=== PATIENT | female | born 1965 | race Caucasian/White ===

== ENCOUNTER → 2017-07-28 10:59 | Outpatient (CLI) | payer OTHER, SELFPAY ==
[2017-07-28 18:45] LABS: Basophils % 0.4 % (0.1-2.0); Eosinophils # 0.3 K/mm3 (0.0-0.4); Hemoglobin 12.8 g/dL (12.2-16.2); Lymphocytes # 3.3 K/mm3 (0.7-4.5); Lymphocytes % 34.7 K/mm3 (10-50); Mean Corpuscular HGB Conc 31.2 g/dL (31.8-35.4); Mean Corpuscular Hemoglobin 26.5 pg (27.0-31.2); Mean Corpuscular Volume 84.8 fl (81-99); Mean Platelet Volume 8.4 fl (7.4-10.4); Monocytes # 0.6 K/mm3 (0.1-1.0); Monocytes % 6.5 % (1.7-9.3); Neutrophils # 5.3 K/mm3 (1.8-7.8); Neutrophils % 55.3 % (37.0-80.0); Platelet Count 427 K/mm3 (142-424); Red Blood Count 4.84 M/mm3 (4.20-5.40); Red Cell Distribution Width 15.5 % (11.5-17.5); White Blood Count 9.5 K/mm3 (4.8-10.8)
[2017-07-28 19:13] LABS: Alanine Aminotransferase 22 U/L (12-78); Albumin Level 3.9 gm/dL (3.4-5.0); Albumin/Globulin Ratio 0.9 (1.1-1.8); Alkaline Phosphatase 69 U/L (46-116); Anion Gap 14.5 mEq/L (5-15); Aspartate Amino Transferase 14 U/L (15-37); Bilirubin,Total 0.3 mg/dL (0.2-1.0); Blood Urea Nitrogen 8 mg/dL (7-18); Calcium 9.3 mg/dL (8.5-10.1); Carbon Dioxide 26 mmol/L (21.0-32.0); Chloride 104 mmol/L (98-107); Chol/HDL Ratio 5.4 (1-3.5); Cholesterol 223 mg/dL (140-200); Creatinine,Serum 0.61 mg/dL (0.55-1.02); Estimated Glomerular Filt Rate 104 ml/min (>60); Free T4 (Free Thyroxine) 1.08 ng/dl (0.76-1.46); GFR (African American) 126 ML/MIN (>60); Globulin 4.2 gm/dl (1.3-3.2); Glucose 85 mg/dL (74-106); HDL Cholesterol 41 mg/dL (29-89); LDL Cholesterol 159 mg/dL (0-130); Potassium 4.5 mmoL/L (3.5-5.1); Sodium 140 mmol/L (136-145); Thyroid Stimulating Hormone 1.38 uIU/ml (0.358-3.740); Total Protein,Serum 8.1 gm/dL (6.4-8.2); Triglycerides 117 mg/dL (30-200); VLDL Cholesterol 23 mg/dL (0-40)
[2017-07-28 19:19] LABS: Hemoglobin A1C 5.6 % (0.0-7.0)
[2017-07-28 20:05] LABS: Erythrocyte Sedimentation Rate 42 mm/hr (0-20)
[2017-07-30 17:09] LABS: RA Latex Turbid. 474.1 IU/mL (0.0-13.9)
[2017-07-31 13:09] LABS: Anti-Jo-1 <0.2 AI (0.0-0.9); Anti-Smith Antibody <0.2 AI (0.0-0.9); Antichromatin Antibodies <0.2 AI (0.0-0.9); Antiscleroderma-70 Antibodies <0.2 AI (0.0-0.9); RNP Antibodies 0.4 AI (0.0-0.9); Sjogren's Anti-SS-A <0.2 AI (0.0-0.9); Sjogren's Anti-SS-B <0.2 AI (0.0-0.9)
[2017-08-02 06:34] LABS: Anti-Centromere B Antibodies <0.2 AI (0.0-0.9); Anti-Cyclic Citrullinated Pept >250 units (0-19); Anti-DNA (DS) Ab Qn 2 IU/mL (0-9); Vitamin D 25 Hydroxy 29.3 ng/mL (30.0-100.0)
== END ==
PROVIDERS: Visit Provider Nurse Practitioner Family
DX: R53.83 Other fatigue (principal)
CPT/HCPCS: 80053; 80061; 82652; 83036; 84439; 84443; 85025; 85651; 86038; 86141; 86200; 86431

== ENCOUNTER → 2017-08-15 09:15 | Outpatient (CLI) | payer OTHER, SELFPAY ==
--- NOTE | 2017-08-15 09:20 | XR_ITS ---
XR chest 2V HISTORY: ITS.REASON: lung nodule ORDERING PHYSICIAN: Amanda Judge PATIENT AGE: 52 years COMPARISON: None available FINDINGS: Unremarkable cardiovascular structures. There are small well-defined nodular opacities in the perihilar region and in the lower lobes consistent with granulomas. These are 4 mm or less. No acute bony anomalies. IMPRESSION: No acute finding. Old granulomatous disease
--- NOTE | 2017-08-15 09:20 | MM_ITS ---
MM Dig screening mamm BI w/CAD CAD Screening ORDERING PHYSICIAN : Amanda Judge PATIENT AGE: 52 years INDICATION: Routine screeningNo new complaints. Prior Excisional benign biopsy left breast. Noncontributory family history COMPARISON: Previous mammograms have been purged TECHNIQUE: Standard CC and MLO images were obtained. R2 CAD reviewed. FINDINGS: Moderate, Fairly dense breast bilaterally on the right of more pronounced than left. This decreases sensitivity of mammography. On prior films been purged. RIGHT BREAST: 8 mm focal nodular density lateral left breast LABELED A.. Suggest cc & MLO spot view right breast, along with a full 90 degree view right breast and subsequent right breast ultrasound. Others other areas of slight nodularity seen to to dissipate from one view to another. Ultrasound be helpful and survey persist or other features LEFT BREAST:Moderately dense left breast. Areas of minimal focal density at the lateral left breast on cc view most likely summation shadow would seem to dissipate. However would suggest CC and MLO spot view areas labeled X&Y with subsequent ultrasound left breast as well when patient returns. IMPRESSION: Moderately dense breasts which somewhat decrease sensitivity of mammography. Ultrasound is useful to compliment mammography in breast in this setting RIGHT BREAST: Spot views & ultrasound recommended to further evaluate focal 8 mm nodular density lateral breast Labeled A. Minimal nodularity elsewhere seems to dissipate on but warrants subsequent survey with ultrasound. LEFT BREAST.:Spot views & ultrasound suggested to further evaluate areas of density, particularly Area labeled X and less evident Area labeled Y.... These more likely merely summation shadows but would benefit from further evaluation as well Previous & outside studies have been purged not available for comparison BI-RADS Category: 0 Need Additional Imaging Evaluaiton RECOMMENDED FOLLOW-UP: IMM - IMMEDIATE FOLLOW-UP RECOMMENDED (A letter has been sent to the patient regarding results of the study.)
[2017-08-15 11:07] VITALS: PULSE 80; PULSE 83
== END ==
PROVIDERS: PCP Emergency Medicine; Visit Provider Nurse Practitioner Family
DX: Z12.31 Encounter for screening mammogram for malignant neoplasm of breast (principal); N87.9 Dysplasia of cervix uteri, unspecified; R91.1 Solitary pulmonary nodule
CPT/HCPCS: 71046; 77067; 94060; 94640

== ENCOUNTER → 2017-08-29 13:41 | Outpatient (CLI) | payer OTHER, SELFPAY ==
--- NOTE | 2017-08-29 13:42 | MM_ITS ---
MM Dig mamm BI DX w/CAD Right breast ultrasound with axilla. Left breast ultrasound with axilla COMPARISON: 08/15/2017 mammogram INDICATION: Follow-up abnormal mammogram ORDERING PHYSICIAN: Amanda Judge PATIENT AGE: 52 years TECHNIQUE: Problem solving views of both breasts along with bilateral breast ultrasound FINDINGS: Right mammogram: Dense fibroglandular tissue decreasing the sensitivity of mammography. A 6 mm nodular opacity at the 9:00 region. There is some asymmetry in the superior aspect of the right breast and could be related to an 8 mm nodule that was seen on the ultrasound of the same day. Right mammogram: 2 mm cyst at 9:00, 5 mm hypoechoic lesion at 10:00 and could represent a complex cyst. Cannot exclude the possibility of a solid nodule. There is a 7 x 8 mm solid-appearing nodule at 11:00. As well-circumscribed and could represent a small fibroadenoma. Left mammogram: Asymmetric densities in the upper outer aspect of the left breast appear to compress out as fibroglandular tissue. Left breast ultrasound: 5 mm cyst at 2:00. Small nodes in the axilla. IMPRESSION: Asymmetric density in the superior aspect of the right breast may correspond to a solid nodule by ultrasound. Probable cyst at the 9:00 region. The findings are mildly suspicious. Benign findings on the left BI-RADS Category: 4 Suspicious Abnormality-Biopsy Considered right breast RECOMMENDED FOLLOW-UP: BIO - BIOPSY RECOMMENDED Recommend ultrasound-guided fine-needle aspiration/core biopsy of the right breast of the 2 complex nodules (A letter has been sent to the patient regarding results of the study.)
== END ==
PROVIDERS: PCP Emergency Medicine; Visit Provider Nurse Practitioner Family
DX: R92.8 Other abnormal and inconclusive findings on diagnostic imaging of breast (principal)
CPT/HCPCS: 77066

== ENCOUNTER → 2017-08-30 08:16 | Outpatient (CLI) | payer OTHER, SELFPAY ==
--- NOTE | 2017-08-30 08:40 | US_ITS ---
MM Dig mamm BI DX w/CAD Right breast ultrasound with axilla. Left breast ultrasound with axilla COMPARISON: 08/15/2017 mammogram None INDICATION: Follow-up abnormal mammogram ORDERING PHYSICIAN: Amanda Judge PATIENT AGE: 52 years TECHNIQUE: Problem solving views of both breasts along with bilateral breast ultrasound FINDINGS: Right mammogram: Dense fibroglandular tissue decreasing the sensitivity of mammography. A 6 mm nodular opacity at the 9:00 region. There is some asymmetry in the superior aspect of the right breast and could be related to an 8 mm nodule that was seen on the ultrasound of the same day. Right mammogram: 2 mm cyst at 9:00, 5 mm hypoechoic lesion at 10:00 and could represent a complex cyst. Cannot exclude the possibility of a solid nodule. There is a 7 x 8 mm solid-appearing nodule at 11:00. As well-circumscribed and could represent a small fibroadenoma. Left mammogram: Asymmetric densities in the upper outer aspect of the left breast appear to compress out as fibroglandular tissue. Left breast ultrasound: 5 mm cyst at 2:00. Small nodes in the axilla. IMPRESSION: Asymmetric density in the superior aspect of the right breast may correspond to a solid nodule by ultrasound. Probable cyst at the 9:00 region. The findings are mildly suspicious. Benign findings on the left BI-RADS Category: 4 Suspicious Abnormality-Biopsy Considered right breast RECOMMENDED FOLLOW-UP: BIO - BIOPSY RECOMMENDED Recommend ultrasound-guided fine-needle aspiration/core biopsy of the right breast of the 2 complex nodules (A letter has been sent to the patient regarding results of the study.)
== END ==
PROVIDERS: PCP Emergency Medicine; Visit Provider Nurse Practitioner Family
DX: R92.8 Other abnormal and inconclusive findings on diagnostic imaging of breast (principal)
CPT/HCPCS: 76641

== ENCOUNTER → 2017-09-07 09:12 | Outpatient (CLI) | payer OTHER, SELFPAY ==
--- NOTE | 2017-09-07 09:14 | US_ITS ---
FNA w guidance, FNA w guidance, US organ site (breast) HISTORY: 2 right breast nodules seen on recent mammogram and ultrasound. ITS.REASON: abnormal right mammogram ORDERING PHYSICIAN: Reji Almaguer MD PATIENT AGE: 52 years COMPARISON: 08/30/2017 and 08/29/2017 TECHNIQUE: Following obtaining informed consent, using aseptic technique and local anesthesia with buffered lidocaine, fine-needle aspiration was performed of the nodule of interest at 10:00 and then at 11:00 using sonographic guidance with a 21-gauge needle. Both nodules decreased in size. Specimen was given to cytology. The patient tolerated the procedure well without evidence of immediate complications and left the ultrasound suite in stable condition. CYTOLOGY: Nodule A at 10:00 negative for malignant cells. Consistent with cyst contents Nodule B at 11:00: Negative for malignant cells consistent with cyst contents IMPRESSION: Status post fine needle aspiration of nodules at 10 and 11:00 under sonographic guidance showing benign findings. Recommend repeat right mammogram and breast ultrasound in 6 months.
== END ==
PROVIDERS: PCP Emergency Medicine; Visit Provider Emergency Medicine
DX: R92.8 Other abnormal and inconclusive findings on diagnostic imaging of breast (principal)
CPT/HCPCS: 76942; 10022; 76641

== ENCOUNTER → 2017-10-13 10:21 | Outpatient (CLI) | payer OTHER, SELFPAY ==
--- NOTE | 2017-10-13 10:41 | XR_ITS ---
XR wrist RT min 3V HISTORY pain ITS.REASON: carpal tunnel ORDERING PHYSICIAN: Brock Gamez MD PATIENT AGE: 52 years COMPARISON: None FINDINGS: No fracture or dislocation. No lytic or blastic change. There is normal mineralization.. The joint spaces are well-preserved. No significant degenerative/arthritic changes. No erosive changes evident.. IMPRESSION: Negative wrist
--- NOTE | 2017-10-13 10:41 | XR_ITS ---
XR wrist LT min 3V HISTORY pain ITS.REASON: carpal tunnel ORDERING PHYSICIAN: Brock Gamez MD PATIENT AGE: 52 years COMPARISON: None FINDINGS: No fracture or dislocation. No lytic or blastic change. There is normal mineralization.. The joint spaces are well-preserved. No significant degenerative/arthritic changes. No erosive changes evident.. IMPRESSION: Negative wrist
--- NOTE | 2017-10-13 10:41 | XR_ITS ---
XR chest 2V HISTORY: ITS.REASON: CURRENT SMOKER ORDERING PHYSICIAN: Brock Gamez MD PATIENT AGE: 52 years COMPARISON: 08/15/2017 FINDINGS: The cardiomediastinal silhouette and pulmonary vascularity are within normal limits. The lungs are clear without infiltrates, suspicious nodules, or pleural effusions. Old granulomatous disease. Old right third rib fracture anteriorly No acute bony abnormalities. IMPRESSION: No change with no acute finding
[2017-10-13 12:14] LABS: Basophils % 0.3 % (0.1-2.0); Eosinophils # 0.1 K/mm3 (0.0-0.4); Eosinophils % 1.4 % (0.1-12.0); Hematocrit 39.2 % (37.0-47.0); Hemoglobin 12.6 g/dL (12.2-16.2); Lymphocytes % 28.3 K/mm3 (10-50); Mean Corpuscular HGB Conc 32.2 g/dL (31.8-35.4); Mean Corpuscular Hemoglobin 27.5 pg (27.0-31.2); Mean Corpuscular Volume 85.4 fl (81-99); Mean Platelet Volume 7.3 fl (7.4-10.4); Monocytes # 0.5 K/mm3 (0.1-1.0); Monocytes % 4.7 % (1.7-9.3); Neutrophils # 6.9 K/mm3 (1.8-7.8); Neutrophils % 65.4 % (37.0-80.0); Platelet Count 409 K/mm3 (142-424); Red Blood Count 4.59 M/mm3 (4.20-5.40); Red Cell Distribution Width 15.2 % (11.5-17.5); White Blood Count 10.5 K/mm3 (4.8-10.8)
[2017-10-13 13:04] LABS: Anion Gap 14.2 mEq/L (5-15); Blood Urea Nitrogen 8 mg/dL (7-18); Carbon Dioxide 27 mmol/L (21.0-32.0); Chloride 105 mmol/L (98-107); Creatinine,Serum 0.49 mg/dL (0.55-1.02); Estimated Glomerular Filt Rate 134 ml/min (>60); GFR (African American) 162 ML/MIN (>60); Potassium 4.2 mmoL/L (3.5-5.1); Sodium 142 mmol/L (136-145)
[2017-10-13 13:13] LABS: Glucose 92 mg/dL (74-106)
== END ==
PROVIDERS: Visit Provider Orthopaedic Surgery
DX: Z01.818 Encounter for other preprocedural examination (principal); G56.01 Carpal tunnel syndrome, right upper limb
CPT/HCPCS: 36415; 71046; 73110; 80048; 85025; 93005

== ENCOUNTER → 2017-11-08 09:32 | Outpatient (CLI) | payer OTHER, SELFPAY ==
--- NOTE | 2017-11-08 09:35 | XR_ITS ---
XR knee LT 4V HISTORY: ITS.REASON: left knee pain ORDERING PHYSICIAN: Brock aGmez MD PATIENT AGE: 52 years COMPARISON: None FINDINGS: No fracture or dislocation. No lytic or blastic change. Normal mineralization. No significant arthritic changes evident. No other significant findings IMPRESSION: Negative Knee
== END ==
PROVIDERS: PCP Nurse Practitioner Family; Visit Provider Orthopaedic Surgery
DX: M25.562 Pain in left knee (principal)
CPT/HCPCS: 73564

== ENCOUNTER → 2017-12-07 10:53 | Outpatient (CLI) | payer OTHER, SELFPAY ==
--- NOTE | 2017-12-07 10:53 | MR_ITS ---
MR knee LT wo con HISTORY: Left knee pain anterior, posterior, and all around the knee ITS.REASON: left knee pain ORDERING PHYSICIAN: Brock Gamez MD PATIENT AGE: 52 years Comparison: 11/08/2017 TECHNIQUE: Standard multiplanar multiecho sequences are performed without contrast. FINDINGS: The cruciate ligaments are intact. The collateral ligaments are intact. The quadriceps tendon and patellar tendon have an unremarkable appearance. No evidence of meniscal tear. There is decreased T1 and increased T2 signal involving the lateral aspect of the distal femur consistent with a bone bruise or bone marrow edema.. This is just deep to the fibula collateral ligament. There is a large knee joint effusion with a large component in the suprapatellar region and even larger Campbell's cyst a loculated appearance and measuring 10 cm cephalad to caudad containing internal septations and internal debris with heterogeneous signal intensity. The Campbell's cyst extends inferiorly into the upper calf. IMPRESSION: 1. No internal derangement. 2. Bone bruise or bone marrow edema along the lateral aspect of the distal femur deep to the insertion of the fibulocollateral ligament. The lateral collateral ligament however appears intact. 3. Large knee joint effusion with large Campbell's cyst with internal debris and septations of the cyst
[2017-12-07 12:59] LABS: Free T4 (Free Thyroxine) 1.03 ng/dl (0.76-1.46); Thyroid Stimulating Hormone 1.38 uIU/ml (0.358-3.740)
[2017-12-08 15:39] LABS: Folate 4.8 ng/mL (>3.0); Vitamin B12 370 pg/mL (232-1245)
== END ==
PROVIDERS: PCP Nurse Practitioner Family; Visit Provider Orthopaedic Surgery
DX: M25.562 Pain in left knee (principal)
CPT/HCPCS: 36415; 73721; 82607; 82746; 84439; 84443

== ENCOUNTER → 2017-12-18 12:30 | Outpatient (CLI) | payer OTHER, SELFPAY ==
--- NOTE | 2017-12-18 12:32 | NVE_ITS ---
Venous Exam Indications: 729.5 Pain in limb. IMPRESSIONS 1. There is no evidence of significant Reflux. 2. No evidence of deep or superficial vein thrombosis involving the left lower extremity 3. Large Bakers cyst with internal debris Complete lower extremity venous duplex evaluation. Doppler flow study including spectral analysis, color and cadet scale imaging. Location: Vascular laboratory. Patient status: Outpatient. CRITICAL FINDINGS - Reported to: Dorina - Read back and verified. - 12/18/17 - 1330 - Large campbell's cyst with internal debris Incidental findings: A Campbell's cyst is noted incidentally on the left. Tables: Venous flow and imaging: + +-------+ + Location Overall Flow properties + +-------+ + Left common femoral Patent Normal phasicity; spontaneous; normal augmentation; compressible + +-------+ + Left saphenofemoral junction Patent Compressible + +-------+ + Left profunda femoral Patent Compressible + +-------+ + Left femoral Patent Normal phasicity; spontaneous; normal augmentation; compressible + +-------+ + Left greater saphenous Patent Normal phasicity; spontaneous; normal augmentation; compressible + +-------+ + Left popliteal Patent Normal phasicity; spontaneous; normal augmentation; compressible + +-------+ + Left posterior tibial Patent Compressible + +-------+ + Left peroneal Patent Compressible + +-------+ + Left gastrocnemius Patent Compressible + +-------+ + Left soleal Patent Compressible + +-------+ + (Report amended ) Electronically signed by: Magnus Vera [id number]
[2017-12-18 14:32] LABS: Basophils % 0.4 % (0.1-2.0); Eosinophils # 0.3 K/mm3 (0.0-0.4); Eosinophils % 2.9 % (0.1-12.0); Hematocrit 42.6 % (37.0-47.0); Hemoglobin 13.1 g/dL (12.2-16.2); Lymphocytes # 3.3 K/mm3 (0.7-4.5); Mean Corpuscular HGB Conc 30.7 g/dL (31.8-35.4); Mean Corpuscular Hemoglobin 26.2 pg (27.0-31.2); Mean Corpuscular Volume 85.1 fl (81-99); Mean Platelet Volume 6.8 fl (7.4-10.4); Monocytes # 0.6 K/mm3 (0.1-1.0); Monocytes % 5.8 % (1.7-9.3); Neutrophils # 6.1 K/mm3 (1.8-7.8); Neutrophils % 58.9 % (37.0-80.0); Platelet Count 532 K/mm3 (142-424); Red Blood Count 5.01 M/mm3 (4.20-5.40); Red Cell Distribution Width 13.9 % (11.5-17.5); White Blood Count 10.4 K/mm3 (4.8-10.8)
[2017-12-18 16:45] LABS: Anion Gap 13.2 mEq/L (5-15); Blood Urea Nitrogen 7 mg/dL (7-18); Calcium 9.7 mg/dL (8.5-10.1); Carbon Dioxide 26 mmol/L (21.0-32.0); Chloride 105 mmol/L (98-107); Creatinine,Serum 0.61 mg/dL (0.55-1.02); Estimated Glomerular Filt Rate 104 ml/min (>60); GFR (African American) 126 ML/MIN (>60); Glucose 102 mg/dL (74-106); Potassium 5.2 mmoL/L (3.5-5.1); Sodium 139 mmol/L (136-145)
== END ==
PROVIDERS: Orthopaedic Surgery; PCP Emergency Medicine; Visit Provider Emergency Medicine
DX: G56.02 Carpal tunnel syndrome, left upper limb (principal); Z01.818 Encounter for other preprocedural examination
CPT/HCPCS: 36415; 80048; 85025; 93971

== ENCOUNTER → 2018-02-15 10:26 | Outpatient (CLI) | payer OTHER, SELFPAY ==
--- NOTE | 2018-02-15 10:28 | XR_ITS ---
XR knee RT 4V HISTORY: Right knee pain ITS.REASON: weightbearing ORDERING PHYSICIAN: Brock Gamez MD PATIENT AGE: 52 years COMPARISON: None FINDINGS: No fracture or dislocation. No lytic or blastic change. Normal mineralization. No significant arthritic changes evident. No other significant findings IMPRESSION: Negative Knee
== END ==
PROVIDERS: PCP Emergency Medicine; Visit Provider Orthopaedic Surgery
DX: M25.561 Pain in right knee (principal)
CPT/HCPCS: 73564

== ENCOUNTER → 2018-09-04 11:54 | Outpatient (CLI) | payer OTHER, SELFPAY ==
--- NOTE | 2018-09-04 12:03 | XR_ITS ---
XR chest 2V HISTORY: Smoker, history of lung nodule ITS.REASON: shortness of breath ORDERING PHYSICIAN: Reji Almaguer MD PATIENT AGE: 53 years COMPARISON: 09/18/2019 FINDINGS: The cardiomediastinal silhouette and pulmonary vascularity are within normal limits. There is chronic coarsening of the bronchovascular markings which may related to smoking-related lung disease. Calcified granuloma is present in the right lung base laterally and there is an old right third rib fracture. No lobar consolidation or collapse. No acute bony findings and no significant change from 10/13/2017. IMPRESSION: Chronic changes, no acute finding
--- NOTE | 2018-09-04 12:03 | XR_ITS ---
EXAM: XR cervical spine 5V HISTORY: Neck pain, history of rheumatoid arthritis ITS.REASON: neck pain ORDERING PHYSICIAN: Reji Almaguer MD PATIENT AGE: 53 years COMPARISON: None FINDINGS: There is degenerative disc disease at C6-C7 with minimal anterolisthesis of C5 on C6 of 2 mm. Foraminal narrowing is present on the right at C3-C4 from uncovertebral hypertrophy. No fracture or dislocation. No lytic or blastic change. Mild facet arthritic changes are noted at C3-C4 and C5. There is normal C1-C2 relationship. There is reversal of lordosis at C5-C6. IMPRESSION: 1. Degenerative disc disease C5-C6 reversal lordosis and foraminal narrowing on the right at C3-C4. 2. Facet arthritic change
[2018-09-04 12:28] LABS: Basophils % 0.2 % (0.1-2.0); Eosinophils # 0.2 K/mm3 (0.0-0.4); Hematocrit 36.4 % (37.0-47.0); Hemoglobin 11.9 g/dL (12.2-16.2); Lymphocytes # 4.7 K/mm3 (0.7-4.5); Lymphocytes % 26.7 % (10-50); Mean Corpuscular HGB Conc 32.8 g/dL (31.8-35.4); Mean Corpuscular Volume 82.4 fl (81-99); Mean Platelet Volume 6.7 fl (7.4-10.4); Monocytes % 5.6 % (1.7-9.3); Neutrophils # 11.6 K/mm3 (1.8-7.8); Neutrophils % 66.5 % (37.0-80.0); Platelet Count 483 K/mm3 (142-424); Red Blood Count 4.42 M/mm3 (4.20-5.40); Red Cell Distribution Width 14.4 % (11.5-17.5); White Blood Count 17.5 K/mm3 (4.8-10.8)
[2018-09-04 12:32] LABS: MANUAL DIFFERENTIAL MANUAL DIFFERENTIAL (MANUAL DIFF)
[2018-09-04 12:50] LABS: Eosinophils % 1 % (0-3); Lymphocytes % 27 % (10-50); Monocytes % 3 % (2-9); Neutrophils % 69 % (42-76); Platelet Estimate Slight Increase; RBC Morphology Normal; Total Cells Counted 100
[2018-09-04 13:27] LABS: Erythrocyte Sedimentation Rate 69 mm/hr (0-30)
[2018-09-04 13:48] LABS: Alanine Aminotransferase 16 U/L (12-78); Albumin Level 3.7 gm/dL (3.4-5.0); Albumin/Globulin Ratio 0.9 (1.1-1.8); Alkaline Phosphatase 62 U/L (46-116); Anion Gap 16.5 mEq/L (5-15); Aspartate Amino Transferase 13 U/L (15-37); Bilirubin,Total 0.2 mg/dL (0.2-1.0); Blood Urea Nitrogen 6 mg/dL (7-18); Calcium 9.3 mg/dL (8.5-10.1); Carbon Dioxide 24 mmol/L (21.0-32.0); Chloride 104 mmol/L (98-107); Chol/HDL Ratio 4.6 (1-3.5); Cholesterol 197 mg/dL (140-200); Creatinine,Serum 0.55 mg/dL (0.55-1.02); Estimated Glomerular Filt Rate 117 ml/min (>60); Free T4 (Free Thyroxine) 1.12 ng/dl (0.76-1.46); GFR (African American) 141 ML/MIN (>60); Globulin 4.1 gm/dl (1.3-3.2); Glucose 96 mg/dL (74-106); HDL Cholesterol 43 mg/dL (29-89); LDL Cholesterol 137 mg/dL (0-130); Potassium 3.5 mmoL/L (3.5-5.1); Sodium 141 mmol/L (136-145); Thyroid Stimulating Hormone 1.82 uIU/ml (0.358-3.740); Total Protein,Serum 7.8 gm/dL (6.4-8.2); Triglycerides 86 mg/dL (30-200); Uric Acid 3.2 mg/dL (2.6-7.2); VLDL Cholesterol 17 mg/dL (0-40)
[2018-09-05 08:45] LABS: RA Latex Turbid. 498.1 IU/mL (0.0-13.9)
[2018-09-05 15:44] LABS: Antinuclear Antibodies, IFA Positive (.)
== END ==
PROVIDERS: Visit Provider Emergency Medicine
DX: M06.9 Rheumatoid arthritis, unspecified (principal); R06.02 Shortness of breath; M54.2 Cervicalgia
CPT/HCPCS: 36415; 71046; 72050; 80053; 80061; 84439; 84443; 84550; 85007; 85025; 85651; 86038; 86431

== ENCOUNTER 2020-06-12 11:09 | Emergency (ER) | payer OTHER, SELFPAY ==
[2020-06-12 11:15] VITALS: BP 145/79; PULSE 84; RESP 18; TEMP 36.6; O2SAT 100; BMI 26.5
--- NOTE | 2020-06-12 11:32 | HMH.EDSKAF ---
ED Disposition Clinical Impression: Felon of digit Disposition: Home, Self-Care Condition on Discharge: Good Instructions: DI for Skin Abscess Additional Instructions: Continue taking antibiotics. Keep your thumb clean and dry. Follow-up PCP in 3 days. Referrals: PCP,No [Primary Care Provider] - 3 days Time of Disposition: 12:26 - Critical Care Critical Care Time: No Attestation: On 06/12/20, the high probability of a clinically significant, sudden or life threatening deterioration of the following system(s) required my full and direct attention, intervention and personal management. The time I documented below is in addition to time spent performing reported procedures but includes the following listed in this critical care notation. Medical Decision Making - Jad Inquiry Pt receiving controlled substance: No Vital Signs: 06/12/20 11:15 Temperature 97.9 F Temperature Source Oral Pulse Rate [Right Radial] 84 Respiratory Rate 18 Blood Pressure [Right Arm] 145/79 H Blood Pressure Mean [Right Arm] 101 Blood Pressure Source [Right Arm] Automatic Cuff Blood Pressure Position [Right Arm] Sitting 02 Sat by Pulse Oximetry 100 Oxygen Delivery Method Room Air Skin/Abscess/FB HPI - General Chief complaint: Skin/Abscess/Foreign Body Stated complaint: left thumb has hematoma Time Seen by Provider: 06/12/20 11:32 Mode of Arrival: Ambulatory Source of Information: Patient Limitations: No Limitations Description of Symptoms (Recalled from ER Triage Doc. by RN): Pt reports has had a arthritic nodule for a long time on L thumb, pt reports approx 6 days ago area began getting larger, area is green in color, pt states area is painful, denies fever or drainage. Pt reports has been on bactrim for 3 days per PCP, states she was referred to dermatology who pt states told her they wouldn't touch it because its nodular . Pt states she was called by pcp office and told to come to the ER for evaluation. - History of Present Illness HPI narrative: 55yo F with past medical history significant for rheumatoid arthritis presents to the emergency department secondary to pain and swelling about her left thumb. Pain and swelling are located about the distal phalanx, the pulp. Patient voices been ongoing for a week. She saw PCP and was started on Bactrim approximately 3 days ago. She was referred to dermatology who said they did not handle this. Patient was then called by her PCP and instructed to come to the emergency department immediately for further evaluation. Patient denies previous episodes similar to this. Denies fever, nausea/vomiting/diarrhea. Denies known sick contact. - Related Data Home Medications Medication Instructions Recorded Confirmed Sulfamethoxazole/Trimethoprim 1 tab PO BID 06/12/20 06/12/20 [Sulfamethoxazole-Tmp Ds Tablet*] Tofacitinib Citrate [Xeljanz Xr] 11 mg PO DAILY 06/12/20 06/12/20 Allergies Allergy/AdvReac Type Severity Reaction Status Date / Time No Known Allergies Allergy Verified 09/04/18 10:25 [facility] History - Hepatitis A Screen Drug use history?: No High risk sexual behaviors?: No History of sexually transmitted infection?: No Currently employed?: No Childcare worker?: No Do you have indoor plumbing?: Yes Do you have electricity?: Yes Attestation statement:: This patient has been screened for Hepatitis A risk factors. Medical History: Reports:: Anxiety, Chronic Obstructive Pulmonary Disease (COPD), Depression, Gastroesophageal Reflux Disease(GERD), Hyperlipidemia, Hypertension Denies:: Cancer, Diabetes Mellitus Type 1, Diabetes Mellitus Type 2, Internal Pacemaker, MRSA, Seizures Other Medical History: Reports: Arthritis, Fibromyalgia. Denies: Blood Transfusion Reaction Comment: IRON DEFICIENCY, DYSPHLASIA Laterality Cases: Left: Lumpectomy, Bilateral: Carpal Tunnel Release, Other Other Surgeries: Yes: Tubal Ligation, Other. No: Pacemaker Amputation: No Fractu
--- NOTE | 2020-06-12 12:37 | PC.NURSE ---
DRESSING APPLIED TO LT THUMB
[2020-06-12 12:38] VITALS: BP 132/74; PULSE 78; RESP 16; TEMP 36.6; O2SAT 98
== END 2020-06-12 12:39 | disposition home or self-care (01) ==
PROVIDERS: Emergency Provider Family Medicine; PCP Nurse Practitioner Family
DX: L03.012 Cellulitis of left finger (principal); F41.8 Other specified anxiety disorders; J44.9 Chronic obstructive pulmonary disease, unspecified; M79.7 Fibromyalgia; I10 Essential (primary) hypertension; E78.5 Hyperlipidemia, unspecified; K21.9 Gastro-esophageal reflux disease without esophagitis; F17.210 Nicotine dependence, cigarettes, uncomplicated
CPT/HCPCS: 10060; 99282